=== PATIENT | male | born 1975 | race Caucasian/White ===

== ENCOUNTER → 2018-06-17 | Day surgery (SDC) | payer OTHER ==
--- NOTE | 2018-06-17 16:04 | RADIOLOGY REPORT (SQ) ---
EXAM DESCRIPTION: ARTHRO KNEE INJECTION; FLUORO/NEEDLE PLACEMENT COMPLETED DATE/TIME: 06/17/2018 3:21 pm REASON FOR STUDY: S83.511A SPRAIN OF ANTERIOR CRUCIATE LIGAMENT OF RIGHT KNEE, INIT S83.511A SPRAIN OF ANTERIOR CRUCIATE LIGAMENT OF RIGHT KNEE, COMPARISON: None. FLUOROSCOPY TIME: 23 seconds 2 digital radiographic images saved to PACS. LIMITATIONS: None. PROCEDURE: Procedure, risks, benefits and alternatives explained to patient who then gave written c onsent. The right knee was marked and a time-out was called for correct marking verification. Entry site marked using fluoroscopic guidance. Knee prepped and draped using sterile technique. Local a nesthesia achieved using 3 mL of 1% lidocaine injection. 22 gauge needle introduced into the joint s pace under direct fluoroscopic visualization. Non-ionic contrast instilled to confirm intra-articula r position. Dilute gadolinium solution then injected. Needle removed and entry site covered with s terile bandage. No immediate complications noted. TECHNIQUE: Digital images acquired during fluoroscopy and stored on PACS. Patient immediately take n to the MR suite for additional imaging. INJECTION LOCATION: Right knee CONTRAST TYPE AND AMOUNT: 3 mL of Isovue-300 was in injected to confirm intra-articular needle placem ent. This was followed by 30 mL of dilute saline/Dotarem mixture for right knee MR arthrogram IMPRESSION: SUCCESSFUL NEEDLE PLACEMENT AND INJECTION FOR RIGHT KNEE MR ARTHROGRAM. COMMENT: Quality ID 145: Final reports for procedures using fluoroscopy that document radiation exp osure indices, or exposure time and number of fluorographic images (if radiation exposure indices are not available) TECHNICAL DOCUMENTATION: JOB ID: [id number] [employer]- All Rights Reserved Reading location - IP/workstation name: [facility]
--- NOTE | 2018-06-17 16:04 | RADIOLOGY REPORT (SQ) ---
EXAM DESCRIPTION: ARTHRO KNEE INJECTION; FLUORO/NEEDLE PLACEMENT COMPLETED DATE/TIME: 06/17/2018 3:21 pm REASON FOR STUDY: S83.511A SPRAIN OF ANTERIOR CRUCIATE LIGAMENT OF RIGHT KNEE, INIT S83.511A SPRAIN OF ANTERIOR CRUCIATE LIGAMENT OF RIGHT KNEE, COMPARISON: None. FLUOROSCOPY TIME: 23 seconds 2 digital radiographic images saved to PACS. LIMITATIONS: None. PROCEDURE: Procedure, risks, benefits and alternatives explained to patient who then gave written c onsent. The right knee was marked and a time-out was called for correct marking verification. Entry site marked using fluoroscopic guidance. Knee prepped and draped using sterile technique. Local a nesthesia achieved using 3 mL of 1% lidocaine injection. 22 gauge needle introduced into the joint s pace under direct fluoroscopic visualization. Non-ionic contrast instilled to confirm intra-articula r position. Dilute gadolinium solution then injected. Needle removed and entry site covered with s terile bandage. No immediate complications noted. TECHNIQUE: Digital images acquired during fluoroscopy and stored on PACS. Patient immediately take n to the MR suite for additional imaging. INJECTION LOCATION: Right knee CONTRAST TYPE AND AMOUNT: 3 mL of Isovue-300 was in injected to confirm intra-articular needle placem ent. This was followed by 30 mL of dilute saline/Dotarem mixture for right knee MR arthrogram IMPRESSION: SUCCESSFUL NEEDLE PLACEMENT AND INJECTION FOR RIGHT KNEE MR ARTHROGRAM. COMMENT: Quality ID 145: Final reports for procedures using fluoroscopy that document radiation exp osure indices, or exposure time and number of fluorographic images (if radiation exposure indices are not available) TECHNICAL DOCUMENTATION: JOB ID: [id number] [employer]- All Rights Reserved Reading location - IP/workstation name: [facility]
--- NOTE | 2018-06-18 08:39 | RADIOLOGY REPORT (SQ) ---
EXAM DESCRIPTION: MRI RT LOWER JOINT WITH COMPLETED DATE/TIME: 06/17/2018 5:08 pm REASON FOR STUDY: S83.511A SPRAIN OF ANTERIOR CRUCIATE LIGAMENT OF RIGHT KNEE, INIT S83.511A SPRAI N OF ANTERIOR CRUCIATE LIGAMENT OF RIGHT KNEE, COMPARISON: None. TECHNIQUE: Post arthrogram rightknee images acquired and stored on PACS. Multiplanar images include fat sensitive sequences as T1, water sensitive sequences as FST2 or STIR, cartilage sensitive sequen vidal as FSPD, and gradient echo sequences. LIMITATIONS: There is ferromagnetic artifact along the patellar tendon, distal femur and proximal ti stanley from remote prior ACL repair FINDINGS: JOINT AND BURSAE: Adequate distention with arthrogram contrast throughout the knee joint s pace. No intra-articular loose bodies. BONE CORTEX AND MARROW: No alteration of signal to suggest marrow replacement. No worrisome bone lesi ons. No occult fracture. ACL: Intact. No degeneration or ganglion cyst. Intact tendon and intact anchors are best shown on sa gittal image 13 PCL: Intact. MCL: Intact. No periligamentous edema or fluid. LCL: Intact. No periligamentous edema or fluid. MEDIAL MENISCUS: Diffuse horizontal tear of the midbody and posterior or medial meniscus best shown o n coronal images 13-18. No parameniscal cyst. LATERAL MENISCUS: Diffuse horizontal tear throughout the mid body and posterior horn of the lateral m eniscus, best shown on coronal images 13-19. No parameniscal cyst. MEDIAL COMPARTMENT: Cartilage preserved. No bone bruises or reactive marrow edema. No osteophytes. LATERAL COMPARTMENT: Cartilage preserved. No bone bruises or reactive marrow edema. No osteophytes. PATELLA: Mild lateral patellar facet chondromalacia. No subchondral cysts. Medial and lateral retinac paco intact. EXTENSOR MECHANISM: Intact. Quadriceps tendon normal. Ferromagnetic artifact from patellar tendon horvath rvesting for ACL graft. Patellar tendon is intact. SOFT TISSUES: Adjacent muscles and subcutaneous tissues normal. Normal flow void in popliteal artery and vein. OTHER: No other significant finding. IMPRESSION: Intact ACL reconstruction Medial and lateral meniscal tears Mild chondromalacia lateral patellar facet TECHNICAL DOCUMENTATION: JOB ID: [id number] [employer]- All Rights Reserved Reading location - IP/workstation name: [facility]
== END ==
LOC: EDSTATUS 06-13 15:00 → RAD 14:26
PROVIDERS: ATTEND Family Medicine
DX: S83.511A Sprain of anterior cruciate ligament of right knee, initial encounter (principal); X58.XXXA Exposure to other specified factors, initial encounter
CPT/HCPCS: 27370; 77002